=== PATIENT | female | born 2000 | race Caucasian/White ===

== ENCOUNTER → 2024-08-05 09:39 | Outpatient (CLI) | payer OTHER, SELFPAY ==
[2024-08-05 15:10] LABS: Urine N gonorrhoeae NOT DETECTED
[2024-08-05 15:16] LABS: Urine Chlamydia NOT DETECTED
== END ==
LOC: LAB 09:40
PROVIDERS: Visit Provider Student in an Organized Health Care Education/Training Program
DX: Z11.3 Encounter for screening for infections with a predominantly sexual mode of transmission (principal)
CPT/HCPCS: 87491; 87591

== ENCOUNTER → 2024-08-07 10:43 | Outpatient (CLI) | payer OTHER, SELFPAY ==
[2024-08-07 11:05] LABS: Add Manual Diff / Slide Review NO; Basophils Absolute Auto 0 /uL (0-100); Basophils Percent Auto 0.4 % (0-2); Eosinophils Absolute Auto 100 /uL (0-450); Eosinophils Percent Auto 1.1 % (2-4); Hematocrit 39.6 % (36-46); Hemoglobin 13.6 g/dL (12.0-16.0); Lymphocytes Absolute Auto 1700 /uL (1100-4500); Lymphocytes Percent Auto 22.2 % (25-40); Mean Corpuscular HGB Conc 34.3 % (30-36); Mean Corpuscular Hemoglobin 31.1 PG (26-34); Mean Corpuscular Volume 90.8 fL (80-100); Monocytes Absolute Auto 500 /uL (0-900); Monocytes Percent Auto 7.1 % (3-14); Neutrophils Absolute Auto 5300 /uL (1500-7000); Neutrophils Percent Auto 69.2 % (50-75); Platelet Count 221 X10^3/uL (150-400); Red Blood Cell Count 4.36 X10^6/uL (4.0-5.2); Red Cell Distribution Width 12.7 % (11.6-14.8); White Blood Cell Count 7.6 X10^3/uL (4.5-11.0)
[2024-08-07 15:39] LABS: Hepatitis B Surface Antigen NEGATIVE s/c (NEGATIVE); Rubella Antibody IgG 32.3 IU/mL (>15)
[2024-08-07 15:49] LABS: HIV 1 & 2 Ab/Ag 4th Gen Combo NEGATIVE (NEGATIVE)
[2024-08-07 15:57] LABS: Hep C Virus Ab w/Reflex Quant NEGATIVE s/c (NEGATIVE)
[2024-08-08 05:10] LABS: RPR Screen Non Reactive (Non Reactive)
[2024-08-08 11:09] LABS: Varicella IgG Antibody Reactive (Non Reactive)
== END ==
PROVIDERS: Referring Provider Obstetrics & Gynecology; Visit Provider Obstetrics & Gynecology
DX: Z34.00 Encounter for supervision of normal first pregnancy, unspecified trimester (principal)
CPT/HCPCS: 36415; 80055; 86787; 86803; 86850; 86900; 86901; 87389

== ENCOUNTER → 2024-10-23 11:56 | Outpatient (CLI) | payer OTHER, SELFPAY ==
--- NOTE | 2024-10-23 11:59 | DI.US.S_ITS ---
PROCEDURE: US OB >= 14 WEEKS FETUS INDICATIONS: 20 week anatomy scan OUTSIDE/PRIOR DATING DATA: Working ELOINA: 03/08/2025 TECHNIQUE: Real-time scanning was performed of the fetus, with image documentation and biometric measurements. Endovaginal scanning: Not performed COMPARISON: None. FINDINGS: General: A single living intrauterine gestation is present. Presentation: Breech. Placenta: Placental position is anterior , without previa. Amniotic fluid index: 12.7 cm, normal range is 5-24 cm. Single deepest vertical pocket is 4.5 cm. heart rate: 145 beats per minute. Maternal cervical canal: 3.6 cm long. Normal lower limit is 2.5 cm. biometrics: Biparietal diameter: 5.1 centimeter, 21 weeks 2 days Head circumference: 18.9 centimeter, 21 weeks 1 day Abdominal circumference: 16.3 centimeter, 21 weeks 2 days Femur length: 3.6 centimeters, 21 weeks 2 days Clinically estimated gestational age: 20 weeks 4 days Composite gestational age from present scan: 21 weeks 2 days Estimated weight and percentile: 415 grams, 84 percentile Anatomic survey: Neuro: Ventricles are non-dilated at less than 10 mm. Cisterna magna is normal at 3-11 mm. Cerebellum is normal in size and morphology. Nuchal skin fold: Normal at less than 6 mm between 14-21 weeks gestational age. Face: Nose and lips, facial profile are normal. Spine: No evidence for spina bifida. Heart: 4-chambered heart is present, with normal ventricular outflow tracts. Diaphragm: Diaphragm is intact. Stomach: Left-sided stomach is present. Kidneys: No hydronephrosis. Normal is less than 5 mm in 2nd trimester, less than 7 mm in 3rd trimester. Cord: 2-vessel cord has orthotopic insertion. Bladder: Normal in size. Extremities: All 4 extremities identified. IMPRESSION: Single living intrauterine at 20 weeks 4 days, ELOINA of 03/08/2025. Estimated weight of 415 grams, 84 percentile. Two vessel cord with orthotopic insertion. Otherwise, normal anatomy survey. We strive to produce accurate, complete, and clear reports of imaging services. To assist us in improving patient care, this report was composed using standard report templates and voice recognition software. Therefore, it may contain abnormal punctuation, insertions and/or omissions. Occasional wrong-word or sound-alike substitutions may occur. Though we review the report and make efforts to correct it, we do recommend that the report be read carefully in proper context to recognize any text inaccuracies. Dictated by: Yogesh Gardiner M.D. on 10/23/2024 at 15:38 Approved by: Yogesh Gardiner M.D. on 10/23/2024 at 15:40
== END ==
LOC: US 11:59
PROVIDERS: Referring Provider Obstetrics & Gynecology; Visit Provider Obstetrics & Gynecology
DX: O43.192 Other malformation of placenta, second trimester (principal); Z3A.20 20 weeks gestation of pregnancy
CPT/HCPCS: 76811

== ENCOUNTER → 2025-01-08 06:43 | Outpatient (CLI) | payer OTHER, SELFPAY ==
--- NOTE | 2025-01-08 06:45 | DI.US.S_ITS ---
PROCEDURE: US OB LIMITED INDICATIONS: GROWTH-BORDERLINE LRG GESTATIONAL AGE ON EDWARD. US OUTSIDE/PRIOR DATING DATA: Last menstrual period (LMP): 06/01/2024 LMP-based estimated date of delivery (ELOINA): Working ELOINA is 03/08/2025 TECHNIQUE: Real-time scanning was performed of the fetus, with image documentation and biometric measurements. Endovaginal scanning: No COMPARISON: [facility], OB >= 14 WEEKS FETUS, 10/23/2024, 12:15. FINDINGS: General: A single living intrauterine gestation is present. Presentation: Vertex. Placenta: Placental position is anterior , without previa. Amniotic fluid index: 13.1 cm, normal range is 5-24 cm. Single deepest vertical pocket is 6.2 cm. heart rate: 152 beats per minute. Maternal cervical canal: 4.1 cm long. Normal lower limit is 2.5 cm. biometrics: Biparietal diameter: 31 weeks 3 days Head circumference: 32 weeks 6 days Abdominal circumference: 32 weeks 1 day Femur length: 32 weeks 2 days Clinically estimated gestational age: 31 weeks 1 days Composite gestational age from present scan: 32 weeks 4 days Estimated weight and percentile: 60th percentile Other: 2 vessel cord redemonstrated. IMPRESSION: 1. Single living IUP redemonstrated and interval growth is within normal limits. 2. 2 vessel cord redemonstrated. We strive to produce accurate, complete, and clear reports of imaging services. To assist us in improving patient care, this report was composed using standard report templates and voice recognition software. Therefore, it may contain abnormal punctuation, insertions and/or omissions. Occasional wrong-word or sound-alike substitutions may occur. Though we review the report and make efforts to correct it, we do recommend that the report be read carefully in proper context to recognize any text inaccuracies. Dictated by: Scott ROCK Interpreted: New Wiseman MD on 01/08/2025 at 10:34 Transcribed by: GERRI on 01/08/2025 at 10:58 Approved by: New Wiseman M.D. on 01/08/2025 at 15:15
== END ==
PROVIDERS: Referring Provider Obstetrics & Gynecology; Visit Provider Obstetrics & Gynecology
DX: Z34.03 Encounter for supervision of normal first pregnancy, third trimester (principal); Z3A.32 32 weeks gestation of pregnancy
CPT/HCPCS: 76815

== ENCOUNTER → 2025-01-12 06:43 | Outpatient (CLI) | payer OTHER, SELFPAY ==
--- NOTE | 2025-01-12 06:45 | DI.US.S_ITS ---
PROCEDURE: US ABDOMEN LIMITED INDICATIONS: Please scan RUQ due to symptoms of cholelithiasis TECHNIQUE: Real-time scanning was performed of the abdominal and retroperitoneal organs, with image documentation. COMPARISON: None. FINDINGS: Liver: Liver is normal in size and homogeneous in echotexture. Gallbladder: No gallstones. The gallbladder wall is normal thickness. No pericholecystic edema. No sonographic Lund's sign. A 4 mm polyp along the right anterior wall requires no further follow-up per SRU guidelines. No adjacent mural thickening. Biliary ducts: Intrahepatic bile ducts are non-dilated. Extrahepatic bile duct caliber measures 5 mm. Normal is 6-7 mm or less in diameter, or 10 mm or less post-cholecystectomy. Pancreas: Visualized portions of the pancreas are sonographically normal. Miscellaneous: No free abdominal fluid. IMPRESSION: No cholelithiasis. Incidental 4 mm benign polyp requires no further follow up per SRU guidelines. Dictated by: New Wiseman M.D. on 01/12/2025 at 8:04 Approved by: New Wsieman M.D. on 01/12/2025 at 8:06
== END ==
LOC: US 06:44
PROVIDERS: Referring Provider Emergency Medicine; Visit Provider Emergency Medicine
DX: R10.31 Right lower quadrant pain (principal)
CPT/HCPCS: 76705

== ENCOUNTER → 2025-02-06 10:30 | Outpatient (CLI) | payer OTHER, SELFPAY ==
[2025-02-07 11:38] LABS: Strep Grp B PCR NEG for Grp B Strep
== END ==
LOC: LAB 10:31
PROVIDERS: Visit Provider Obstetrics & Gynecology
DX: Z36.85 Encounter for antenatal screening for Streptococcus B (principal)
CPT/HCPCS: 87653

== ENCOUNTER 2025-02-18 11:48 | Observation (INO) | payer OTHER, SELFPAY ==
--- NOTE | 2025-02-18 12:48 | DI.US.S_ITS ---
PROCEDURE: US OB BIOPHYSICAL PROFILE INDICATIONS: Possible Oligohydramnios OUTSIDE/PRIOR DATING DATA: Last menstrual period (LMP): 06/01/2024. LMP-based estimated date of delivery (ELOINA): 03/08/2025. TECHNIQUE: Real-time scanning was performed of the fetus, with image documentation Endovaginal scanning: Not performed COMPARISON: None. FINDINGS: General: A single living intrauterine gestation is present. Presentation: Vertex. Placenta: Placental position is anterior , without previa. Amniotic fluid index: 11.0 cm, normal range is 5-24 cm. Single deepest vertical pocket is 6.6 cm cm. heart rate: 132 beats per minute. Maternal cervical canal: Not seen. Biophysical profile: Tone: 2 points. Movement: 2 points. Respiration: 2 points. Largest pocket of fluid: 2 points. IMPRESSION: A single living intrauterine . DAMEON 11.0 cm. BPP / We strive to produce accurate, complete, and clear reports of imaging services. To assist us in improving patient care, this report was composed using standard report templates and voice recognition software. Therefore, it may contain abnormal punctuation, insertions and/or omissions. Occasional wrong-word or sound-alike substitutions may occur. Though we review the report and make efforts to correct it, we do recommend that the report be read carefully in proper context to recognize any text inaccuracies. Dictated by: Mik Hernández M.D. on 02/18/2025 at 13:04 Approved by: Mik Hernández M.D. on 02/18/2025 at 13:19
== END 2025-02-18 13:00 | disposition home or self-care (01) ==
PROVIDERS: Admitting Provider Obstetrics & Gynecology; Referring Provider Obstetrics & Gynecology; Visit Provider Obstetrics & Gynecology
DX: O47.1 False labor at or after 37 completed weeks of gestation (principal); Z3A.37 37 weeks gestation of pregnancy
CPT/HCPCS: 59025; 76819; G0378; G0379

== ENCOUNTER 2025-03-10 11:55 | Outpatient (CLI) | payer OTHER, SELFPAY ==
--- NOTE | 2025-03-10 11:59 | DI.US.S_ITS ---
PROCEDURE: US OB BIOPHYSICAL PROFILE INDICATIONS: postdates OUTSIDE/PRIOR DATING DATA: Working ELOINA 03/08/2025 TECHNIQUE: Real-time scanning was performed of the fetus for biophysical profile, with image documentation. Color and pulse Doppler interrogation was also performed of the umbilical artery near its insertion into the placenta. Endovaginal scanning: Not performed COMPARISON: [facility], US, US OB BIOPHYSICAL PROFILE, 02/18/2025, 12:37. FINDINGS: General: A single living intrauterine gestation is present. Presentation: Vertex. Placenta: Placental position is anterior to the left , without previa. Amniotic fluid index: 12.1 cm, normal range is 5-24 cm. Single deepest vertical pocket is 5.0 cm. heart rate: 135 beats per minute. Maternal cervical canal: Not well seen at late stage of . Clinically estimated gestational age: 40 weeks 2 days Biophysical profile: Tone: 2 points. Movement: 2 points. Respiration: 2 points. Largest pocket of fluid: 2 points. IMPRESSION: Living late 3rd trimester intrauterine with no sonographic evidence of complications. Ultrasound biophysical profile is 8/8. We strive to produce accurate, complete, and clear reports of imaging services. To assist us in improving patient care, this report was composed using standard report templates and voice recognition software. Therefore, it may contain abnormal punctuation, insertions and/or omissions. Occasional wrong-word or sound-alike substitutions may occur. Though we review the report and make efforts to correct it, we do recommend that the report be read carefully in proper context to recognize any text inaccuracies. Dictated by: Patric Teague M.D. on 03/10/2025 at 13:38 Approved by: Patric Teague M.D. on 03/10/2025 at 13:39
== END 2025-03-10 13:11 | disposition home or self-care (01) ==
LOC: LABOR 12:37 → OB 14:08
PROVIDERS: Referring Provider Obstetrics & Gynecology; Visit Provider Obstetrics & Gynecology
DX: O48.0 Post-term pregnancy (principal); O43.893 Other placental disorders, third trimester; Z3A.40 40 weeks gestation of pregnancy
CPT/HCPCS: 59025; 76819; 86850; 86900; 86901; G0378; G0379

== ENCOUNTER 2025-03-11 13:53 | Inpatient (IN) | payer OTHER, SELFPAY ==
[2025-03-11 14:40] VITALS: BP 109/70
--- NOTE | 2025-03-11 16:16 | PM.OBHP.IH.1 ---
OB HPI Date/Time Date of admission: 03/11/25 Date Patient Seen: 03/11/25 Time Patient Seen: 17:00 History of Present Condition Chief complaint: L&D ELOINA Calculator Estimated Delivery Date Method Current WG Current Estimate 03/08/25 LMP (Certain) 41w 0d Other Estimates 03/07/25 Ultrasound #1 41w 1d Estimated Gestational Age (weeks): 41wks : 1 Narrative: Patient is a 25yo G1 @ 41wks presents to L&D for scheduled induction of labor for postdates. no complaints. denies ctx/LOF/VB and reports godo movement. care: good care Dating criteria OB: LMP confirmed by 1st trimester US Ultrasounds: normal mid trimester US Abnormal ultrasound findings: Single umbilcal artery Obstetrical complications: none Medical complications OB: none Preadmission Labs Last OB Lab Results: Blood Type AB Positive 03/11/25, 14:20 Antibody Screen Negative 03/11/25, 14:20 Hct, (36-46) 37.1 % 03/13/25, 06:35 Hgb, (12.0-16.0) 12.6 g/dL 03/13/25, 06:35 Hep Bs Antigen, (NEGATIVE) Negative s/c 08/07/24, 10:47 Hepatitis C Antibody, (NEGATIVE) Negative s/c 08/07/24, 10:47 Rubella Antibody, (>15) 32.3 IU/mL 08/07/24, 10:47 VZV IgG Antibody, (Non Reactive) Reactive 08/07/24, 10:47 Glucose 1 Hr 50 gm, (76-139) 98 mg/dL 11/20/24, 10:50 Group B Strep (PCR) Neg for grp b strep 02/06/25, 10:30 Prior (ies) Hx # Term Pregnancies: 1 Evaluation Evaluation Baseline heart rate: 145 Variability: Moderate (6-25) monitor accelerations: Present Monitor Decelerations: Absent Contraction Frequency (minutes): 10 Uterine Contraction Intensity: Mild Category of Tracing: Reactive Status: Category l Dilation: Closed Effacement: 0-30% station: -3 Position of cervix: mid Consistency: soft Valentine score: 3 Non-invasive Membranes Rupture Test: negative PFSH Surgical History (Updated 07/16/24 @ 09:36 by Mackenzie Yu RN) [place] teeth removed (02/28/18) Family History (Updated 07/16/24 @ 09:40 by Mackenzie Yu RN) Mother Age: 51 Gestational diabetes Hypertension Grandfather Age: 70 Heart attack S/P CABG x 4 Brother Rcilj-Auiopquyz-Xgsbz (WPW) syndrome Social History marital status: number of children: 0 household members: spouse and family lives independently: Yes caregiver/support person: No housing: house pets and animals: Yes (in-laws have cats & dogs) education level: college occupational status: employed current occupational exposures/hazards: No special timothy needs: No travel history: over 6 months ago seatbelt use: always helmet use: Yes water heater temp set < 120 deg: Yes working smoke detector in home: Yes fire extinguisher in home: Yes carbon monox detector in home: Yes firearms in home: Yes firearms unloaded and locked: Yes do you feel safe at home: Yes second hand exposure: No alcohol intake: former substance use type: does not use during the past year weight has: remained stable well-balanced diet: about half the time daily servings fruits/ve-4 caffeine: Yes (tea) Type(s) of exercise: walking Meds Home Medications and Allergies Home Medications ?Medication ?Instructions ?Recorded ?Confirmed ?Type vitamin-ferrous sulfate tab PO 07/16/24 03/10/25 History 27 mg iron-folic acid 0.8 mg tablet acetaminophen 500 mg tablet 500 mg PO Q6H PRN pain #20 tabs 03/12/25 Rx ibuprofen 800 mg tablet 800 mg PO Q8H PRN pain #20 tabs 03/12/25 Rx witch jaqueline 50 % topical pads 1 pad topical BID-QID PRN skin 03/12/25 Rx (Tucks (witch jaqueline)) irritation #40 ea Allergies Allergy/AdvReac Type Severity Reaction Status Date / Time No Known Drug Allergies Allergy Unverified 03/11/25 14:50 OB Exam Narrative Exam Narrative: General- AAO x 3, NAD abdomen- gravid, soft deferred LE- trace edema Objective Labs 03/13/25 06:35 Assessment and Plan Assessment and Plan Assessment and Plan narrative: Vickie is a 25yo G1 @ 41wks presents for scheduled induction of labor for postfates 1. Postdates - admit to L&D CEFM, IVF, regular diet - start misoprostol for cervical ripening - GBS neg - pain analgesia per request - EFW by antonino ribeiro - anticipate Time-Based Coding :: [TOTAL MINUTES] spent with patient and on the chart (including review of chart, obtaining history, exam, reviewing outside data, placing orders, documenting exam and treatment plan, and counseling patient) on [DATE].
[2025-03-11 18:29] LABS: Add Manual Diff / Slide Review NO; Hematocrit 39.0 % (36-46); Hemoglobin 13.4 g/dL (12.0-16.0); Lymphocytes Absolute Auto 1800 /uL (1100-4500); Mean Corpuscular HGB Conc 34.4 % (30-36); Mean Corpuscular Hemoglobin 31.5 PG (26-34); Mean Corpuscular Volume 91.4 fL (80-100)
[2025-03-11 20:25] LABS: Platelet Count 141 X10^3/uL (150-400)
[2025-03-12] MEDS: ONDANSETRON 4 MG/2 ML INJ IV (03:47)
[2025-03-12] MEDS: fentaNYL 100 MCG/2 ML INJ 50 MCG IV (04:42)
--- NOTE | 2025-03-12 07:02 | PM.AN.REGBLK ---
[facility] <Radha Cardozo CRNA - Last Filed: 03/12/25 07:13> Pre-procedure Procedure: Continuous Lumbar Epidural for L&D Attending OB provider: Bonita Poe PMH/ROS narrative: here for IOL PSH/Anesthesia history narrative: [place] teeth Exam narrative: Called to bedside for placement of labor pain epidural (CSE) ASA Class: II Labs: Hct 39.0 % (36-46) 03/11/25 18:14 Plt Count 141 X10^3/uL (150-400) L 03/11/25 20:19 Medications: Current Medications Generic Name Dose Route Start Last Admin Trade Name Freq PRN Reason Stop Dose Admin Carboprost Tromethamine 250 mcg 03/11/25 16:01 Carboprost 250 Mcg/Ml Ampul IM Q90M PRN Bleeding Fentanyl 50 mcg 03/12/25 04:33 03/12/25 04:42 Fentanyl 100 Mcg/2 Ml Inj IV 50 mcg Q1H PRN Administration Pain, Severe (7-10) Oxytocin/Lactated Ringer's 30 unit in 500 mls @ 200 mls/hr 03/11/25 16:01 Oxytocin Premix IV CONT PRN Bleeding Protocol Tranexamic Acid 1,000 mg/ 100 mls @ 600 mls/hr 03/11/25 16:01 Sodium Chloride IV NOW PRN Bleeding Oxytocin/Lactated Ringer's 30 unit in 500 mls @ 2 mls/hr 03/12/25 00:20 Oxytocin Premix IV TITRATE JESSICA Protocol 2 MILLIUNIT/MIN Lidocaine HCl 20 ml 03/11/25 16:01 Lidocaine 1% 20 Ml INJ INTRA-OP PRN Post Delivery Methylergonovine Maleate 0.2 mg 03/11/25 16:01 Methylergonovine 0.2 Mg Tablet PO Q6HR PRN Heavy Bleeding Methylergonovine Maleate 0.2 mg 03/11/25 16:01 Methylergonovine 0.2 Mg/Ml Vial IM NOW PRN Bleeding Mineral Oil 30 ml 03/11/25 16:01 Mineral Oil 30 Ml Udc TOP PRN PRN Version Misoprostol 800 mcg 03/11/25 16:01 Misoprostol 200 Mcg Tablet [place] NOW PRN Bleeding Misoprostol 400 mcg 03/11/25 16:01 Misoprostol 200 Mcg Tablet SL NOW PRN Bleeding Misoprostol 50 mcg 03/11/25 16:01 03/11/25 20:31 Misoprostol 25 Mcg Tablet PO 50 mcg Q4H PRN Administration cervical ripening Naloxone HCl 0.2 mg 03/11/25 16:01 Naloxone 0.4 Mg/Ml Vial IV Q2MIN PRN Opiate Reversal Ondansetron HCl 4 mg 03/12/25 03:40 03/12/25 03:47 Ondansetron 4 Mg/2 Ml Inj IV 4 mg Q4HR PRN Administration Nausea And Vomiting Oxytocin 10 unit 03/11/25 16:01 Oxytocin 10 Unit/Ml Vial IM NOW PRN Bleeding Allergies: Allergies Allergy/AdvReac Type Severity Reaction Status Date / Time No Known Drug Allergies Allergy Unverified 03/11/25 14:50 Procedure Insertion date: 03/12/25 Insertion time: 06:30 Prep/Local: betadine x3 (CHG) and 1% lidocaine Interspace: L3/L4 Patient position: sitting Needle: 18 gauge Hustead (27 ga spinal needle for CSE) Loss of resistance with: saline CHAPIS at (cm): 8 Catheter placed at SKIN (cm): 18 Catheter in SPACE (cm): 10 Sensory level: T10 Insertion: Yes CSF, No Blood, No Paresthesia with insertion, No Paresthesia with injection and No Test dose reaction Initial Medications TEST DOSE time: 06:32 TEST DOSE: 1.5% lidocaine with epinephrine 1:200k (mL): 3 BOLUS DOSE time: 06:40 BOLUS DOSE (mL): 8 BOLUS DOSE med: other (from pump) Infusion INFUSION: 0.125% bupivacaine and with fentanyl 2 mcg/mL Initial rate (mL/hr): 8 (4ml q15min PCEA 20ml lockout) Post-procedure Anesthesia date START: 03/12/25 Anesthesia time START: 06:10 <Ros Esparza CRNA - Last Filed: 03/12/25 16:49> Post-procedure Anesthesia date END: 03/12/25 Anesthesia time END: 14:03 Post-procedure Anesthesia Assessment: Yes CV function: HR/BP stable, Yes Resp function: RR/sat/airway adequate, Yes Post-op hydration adequate, Yes Pain control adequate, Yes Nausea & vomiting absent, Yes Temperature > 36 C, Yes Mental status appropriate and Yes Anesthesia complications
[2025-03-12] MEDS: LACTATED RINGERS 1,000 ML 100 ML IV (07:19)
--- NOTE | 2025-03-12 09:16 | PM.OBPNLAB ---
Date/Time Date Patient Seen: 03/12/25 Time Patient Seen: 09:16 Pain Control Pain control: tolerating well and epidural Comments: resting comfortably with epidural in place s/p 2 doses PO misoprostol last SVE /bulging bag Contractions Contractions on admission: irregular Monitor mode: External Contraction pattern: Irregular Contraction intensity: Moderate Status status: Category l Heart Rate Baseline: 140 Monitor Accelerations: Present Monitor Decelerations: Episodic (intermittent break in tracing, limited interpretation) Monitor Variability: Moderate Assessment and Plan Assessment: induction ongoing Plan: continuous present management and begin patient augmentation Comments: start IV pitocin for augmentation anticipate AROM at time of next SVE 2-4h anticipate
[2025-03-12] MEDS: OXYTOCIN PREMIX 30 UNIT/500 ML PLAST..BAG IV (09:27)
--- NOTE | 2025-03-12 09:42 | P.DS_ITS ---
Discharge Providers Provider Date of admission: 03/11/25 13:53 Consults: 03/11/25 16:01 Consult to Anesthesiology Urgent Comment: Consulting Provider: Anesthesiologist Reason for consultation: Epidural Discharge provider: Jannie Adamson MD Summary Time Spent with Patient Time attestation: Total time spent providing and/or coordinating discharge services: Objective Labs 03/11/25 20:19 Labs: Laboratory Results - last 24 hr 03/11/25 03/11/25 18:14 20:19 WBC 10.4 RBC 4.26 Hgb 13.4 Hct 39.0 MCV 91.4 MCH 31.5 MCHC 34.4 RDW 12.9 Plt Count TNP 141 L Neut % (Auto) 73.7 Lymph % (Auto) 17.4 L [place] % (Auto) 7.7 Eos % (Auto) 0.7 L Baso % (Auto) 0.5 Neut # (Auto) 7700 H Lymph # (Auto) 1800 [place] # (Auto) 800 Eos # (Auto) 100 Baso # (Auto) 0 Discharge Plan Discharge Plan Patient Disposition: Home Provider Discharge Comment: Nothing in the vagina for 6 weeks. No tampons, intercourse, douching, swimming in fresh water/pools/hot tubs. Tub baths are ok if the tub is cleaned well first Discharge orders & Medications Prescriptions: New ibuprofen 800 mg tablet 800 mg PO Q8H PRN (Reason: pain) Qty: 20 0RF acetaminophen 500 mg tablet 500 mg PO Q6H PRN (Reason: pain) Qty: 20 0RF Tucks (witch jaqueline) 50 % pads, medicated 1 pad topical BID-QID PRN (Reason: skin irritation) Qty: 40 0RF Continued vit-ferrous sulfat-FA 27 mg iron- 0.8 mg tablet PO Diet/Activity/Treatments Diet: Diet as Tolerated and Regular Visit Report/Discharge Packet Stand Alone Forms: [employer], Patient Portal/API, Stroke Signs & Symptoms, Influenza Vaccine Info, Notice of Privacy Practices, Inpatient vs Outpatient, Pneumococcal Vaccine Info, Pt. Rights & Responsibilities Discharge Data Attending Provider: Bonita Poe Admit Date/Time: 03/11/25 13:53
[2025-03-12] MEDS: CALCIUM CARBONATE 500 MG TAB 1000 MG PO (10:58)
[2025-03-12] MEDS: FENT 2MCG/ML BUPIV 0.125% EPI 200 MCG/100 ML PLAST..BAG 8 MCG EPIDURAL (12:25)
[2025-03-12] MEDS: MINERAL OIL 30 ML UDC TOP (14:16)
[2025-03-12] MEDS: TRANEXAMIC ACID 1,000 MG in SODIUM CHLORIDE 0.9% 100 ML 600 MG IV (14:21)
--- NOTE | 2025-03-12 14:23 | P.PCNOB_ITS ---
Events: Other (IOL at term, single umbilical artery) Labor & Delivery Delivery date: 03/12/25 Delivery Time: 14:03 Intrapartal Events: None Cervical ripening method: per misoprostal protocol Induction method: per pitocin protocol Delivery augmentation: rupture of membranes Delivery monitor: external FHT Route of delivery: Episiotomy description: None L&D Laceration Description: Periurethral - 1st Degree (not repaired) Estimated blood loss (mL): 350 Anesthesia Type: Epidural Complications: none Narrative: Patient in dorsal lithotomy position, C/C/+2. Rapid descent of station to +3 with excellent maternal expulsive efforts. Per patient request father of baby at perineum, provider guided delivery of head in MAT position with restitution to maternal L. Loose nuchal cord x1 reduced. Anterior shoulder delivered with gentle downward traction followed by posterior shoulder and thorax. placed on maternal abdomen, vigorous with cry after brief period of tactile stimulation. Delayed cord clamping x2min. Cord clamped x2 and cut by FOB, 2VC confirmed. Placenta delivered spontaneously with gentle downward traction. Fundus firm after massage, 2 below umbilicus. Perineal exam revealed deep L periurethral laceration, hemostatic and left unrepaired. Intact perineum. Persistent moderate lochia with appropriate fundal tone, misoprostol 800mg placed rectally, IV TXA given x1 dose. All counts correct x2 [place] Baby 1: gender: Male Presentation: vertex Position: Left Occiput Anterior Placenta delivery description: Spontaneous Cord Vessel Description: 2 Vessels, Nuchal Cord, Loose, Reduced and Around Body x2 score (1 min): 9 score (5 min): 9 Plan for aftercare: Routine care
[2025-03-12] MEDS: DERMOPLAST SPRAY 20% 60 ML 1 SPRAY TOP (16:44)
[2025-03-12] MEDS: LANOLIN OINT 7 GM 1 APPLIC TOP (16:45)
[2025-03-12] MEDS: IBUPROFEN 600 MG TABLET PO (23:25)
[2025-03-13] MEDS: IBUPROFEN 600 MG TABLET PO ×2 (06:27→13:33)
[2025-03-13 06:54] LABS: Hematocrit 37.1 % (36-46); Hemoglobin 12.6 g/dL (12.0-16.0)
--- NOTE | 2025-03-13 08:58 | P.PNOB_ITS ---
Subjective - OB Subjective Patient comments: no complaints [place] baby status: doing well [place] feeding status: exclusively breast feeding Narrative: resting well, voiding without difficulty, pain well controlled, going well Date Patient Seen: 03/13/25 Time Patient Seen: 08:59 Interval history: PPD1 s/p Exam Vital Signs (past 8 hours): maternal VSS/afebrile, reviewed in OBIX Const General: cooperative, healthy appearing and comfortable Nutritional Appearance: average body habitus Orientation: alert, awake and oriented x3 Limitations: mental status not altered Resp Effort & Inspection: normal respiratory effort and able to speak in complete sentences Cardio Pulses: normal peripheral pulses GI Palpation: soft Other: fundus firm at umbilicus, non-tender Other: deferred Skin General: no rashes or lesions noted Neuro General: patient alert, patient awake and patient oriented x3 Extrem General: normal to inspection Psych Mental Status: mental status grossly normal Judgment: judgment good Objective Labs 03/13/25 06:35 Labs: Laboratory Results - last 24 hr 03/13/25 06:35 Hgb 12.6 Hct 37.1 Assessment & Plan Plan day: 1 plan OB: routine care Comments: rubella immune consult PRN declines contraception anticipate dc to home PPD1 vs PPD2 pending clearance per peds Time-Based Coding :: [TOTAL MINUTES] spent with patient and on the chart (including review of chart, obtaining history, exam, reviewing outside data, placing orders, documenting exam and treatment plan, and counseling patient) on [DATE].
[2025-03-13 15:53] VITALS: BP 107/78; PULSE 86; RESP 17; TEMP 37.1
== END 2025-03-13 15:25 | disposition home or self-care (01) | DRG 807 ==
PROVIDERS: Obstetrics & Gynecology; Admitting Provider Obstetrics & Gynecology; Referring Provider Obstetrics & Gynecology; Visit Provider Obstetrics & Gynecology
DX: O48.0 Post-term pregnancy (principal); Z37.0 Single live birth; Z3A.41 41 weeks gestation of pregnancy; O69.89X0 Labor and delivery complicated by other cord complications, not applicable or unspecified
CPT/HCPCS: 36415; 59025; 59050; 59200; 76819; 85014; 85018; 85025; 85049; 86850; 86900; 86901; A9270; G0379; J2405; J2590; J3010; J7050; J7120; S0191